=== PATIENT | male | born 1990 | race Caucasian/White ===

== ENCOUNTER 2024-12-29 06:42 | Observation (INO) ==
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
[2024-12-29 07:36] LABS: HCT - HEMATOCRIT 45.4 % (42.0-52.0); HGB - HEMOGLOBIN 15.5 g/dL (14.0-18.0); MEAN PLATELET VOLUME 8.9 fL (7.4-11.4); NRBC ABSOLUTE COUNT (AUTO) 0.00 x10^3/uL; NUCLEATED RED BLOOD CELLS AUTO 0.0 /100WBC; PLT - PLATELET COUNT 209 10^3/uL (130-450); RED CELL DISTRIBUTION WIDTH 12.7 % (12.0-15.0)
[2024-12-29 07:38] LABS: SLIDE REVIEW? Indicated
[2024-12-29 07:51] LABS: ALT ALANINE AMINOTRANSFERASE 25.0 IU/L (10-60); AST ASPARTATE AMINOTRANSFERASE 12.0 IU/L (10-42); BUN - BLOOD UREA NITROGEN 15.0 mg/dL (6-20); CARBON DIOXIDE - CO2 27.0 mmol/L (21-32); CREATININE 1.1 mg/dL (0.6-1.3); GFR - MDRD 76.0 (>89)
[2024-12-29 07:53] LABS: PLATELET ESTIMATE, MANUAL NORMAL (130-450,000) (NORMAL); PLATELET MORPHOLOGY NORMAL APPEARANCE (NORMAL); RBC MORPHOLOGY (MULTIPLE) NORMAL APPEARANCE (NORMAL)
[2024-12-29 07:54] LABS: TROPONIN I HIGH SENSITIVITY 5.3 ng/L (2.3-19.7)
--- NOTE | 2024-12-29 08:00 | XRAY Report ---
PROCEDURE: XR Chest 2V INDICATIONS: persistent rioght sided chest pain, SOB TECHNIQUE: 2 views of the chest were acquired. COMPARISON: None. FINDINGS AND IMPRESSION: Dense consolidation in the right upper lobe, likely pneumonia. No pleural effusions. Surveillance imaging is recommended to ensure resolution. Normal heart size. Unremarkable osseous structures. Reviewed by: Freddy Bucio MD on 12/29/2024 7:57 AM PST Approved by: Freddy Bucio MD on 12/29/2024 7:57 AM PST Station ID: [id number]
[2024-12-29] MEDS: AZITHROMYCIN INJ 500 MG in SODIUM CHLORIDE 0.9% 250 ML IV STA (08:18)
[2024-12-29] MEDS: cefTRIAXone 1 GM VIAL IVP STA (08:23)
--- NOTE | 2024-12-29 08:45 | CT Report ---
PROCEDURE: CT Chest W INDICATIONS: SOB, pain, right sided chest mass? CONTRAST: 100ml omni 300 TECHNIQUE: After the administration of intravenous contrast, a CT scan of the chest was performed. Images were recorded and evaluated at appropriate window settings. Reformats: axial MIP of the chest, coronal and sagittal. For radiation dose reduction, the following was used: automated exposure control, adjustment of mA and/or kV according to patient size. COMPARISON: Same day radiograph FINDINGS: Image quality: Diagnostic Lungs and pleura: Dense masslike consolidation is seen in the right upper lobe. Bibasal atelectasis. No pleural effusions. Mediastinum, heart, and esophagus: Small hiatal hernia. Normal heart size. No enlarged lymph nodes by size criteria. Chest wall and thyroid: Unremarkable Upper abdomen: No significant abnormalities in the upper abdomen. Bones: No aggressive appearing osseous abnormality. IMPRESSION: Dense masslike consolidation in the right upper lobe, favored to be pneumonia. Short interval follow-up imaging is suggested to ensure resolution following adequate treatment trial. This would be suspicious if persistent. Other findings above. Reviewed by: Freddy Bucio MD on 12/29/2024 8:41 AM PST Approved by: Freddy Bucio MD on 12/29/2024 8:41 AM PST Station ID: [id number]
[2024-12-29] MEDS: fentaNYL 100 MCG/2 ML VIAL IVP STA (09:07)
[2024-12-29] MEDS: ONDANSETRON 4 MG/2 ML VIAL IVP STA (09:07)
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
[2024-12-29 09:24] LABS: B. PARAPERTUSSIS- RESP PCR PAN NOT DETECTED; B. PERTUSSIS- RESP PCR PANEL NOT DETECTED; C. PNEUMONIAE- RESP PCR PANEL NOT DETECTED; CORONAVIRUS 229E-RESP PCR NOT DETECTED; CORONAVIRUS HKU1-RESP PCR NOT DETECTED; CORONAVIRUS NL63-RESP PCR NOT DETECTED; CORONAVIRUS OC43-RESP PCR NOT DETECTED; HUMAN METAPNEUMOVIRUS NOT DETECTED; INFLUENZA A- RESP PCR PANEL NOT DETECTED; INFLUENZA B - RESP PCR PANEL NOT DETECTED; M. PNEUMONIAE- RESP PCR PANEL NOT DETECTED; PARAINFLUENZA VIRUS 1 NOT DETECTED; PARAINFLUENZA VIRUS 2 NOT DETECTED; PARAINFLUENZA VIRUS 4 NOT DETECTED; RHINOVIRUS/ENTEROVIRUS NOT DETECTED; RSV- RESP PCR PANEL NOT DETECTED; SARS-CoV-2 -RESP PCR PANEL NOT DETECTED
[2024-12-29] MEDS ORDERED: SODIUM CHLORIDE FLUSH 0.9% 10 ML SYRINGE IVP PRN (10:00)
[2024-12-29] MEDS ORDERED: ONDANSETRON ODT 4 MG TABLET TL PRN (10:00)
[2024-12-29] MEDS: VANCOMYCIN INJ 2 GM in SODIUM CHLORIDE 0.9% 500 ML IV ONE (10:36)
[2024-12-29] MEDS: ONDANSETRON 4 MG/2 ML VIAL IVP PRN (10:47)
[2024-12-29] MEDS: oxyCODONE 5 MG TABLET PO PRN ×2 (10:47→15:43)
[2024-12-29] MEDS: cefTRIAXone 1 GM in SODIUM CHLORIDE 0.9% MINIBAG 100 ML IV STA (11:01)
[2024-12-29] MEDS: ACETAMINOPHEN 500 MG TABLET PO SCH ×2 (11:07→23:49)
[2024-12-29] MEDS: HEPARIN 5,000 UNIT/ML VIAL SUBQ SCH (11:12)
[2024-12-29] MEDS: cefTRIAXone 2 GM in SODIUM CHLORIDE 0.9% MINIBAG 100 ML IV SCH (12:43)
--- NOTE | 2024-12-29 13:38 | PHARMACY PROGRESS NOTE ---
Vancomycin Therapy Monitoring Patient Information Vancomycin Pt Height (inches): 70 Vancomycin Patient Weight (kg): 89 Vanco Rx Serum Creatinine (mg/dL): 1.1 Vancomycin Therapy BUN (mg/dL): 15 Vancomycin Therapy Calculated Creatinine Cl (ml/min): 117 Concurrent Antibiotics: [id number] Vancomycin Therapy Goals Treatment Indication: CAP Vancomycin Target Range: Vancomycin AUC Target Range 400-600 mcg*h/ml Assessment of Current Therapy Vancomycin Loading Dose (GM, if applicable): 2G Current Vancomycin Maintenance Regimen (if applicable): 1G Q8H Vancomycin Current Regimen: Subtherapeutic Levels Estimated Cmax (Peak, mcg/ml): 26.2 Estimated Cmin (Trough, mcg/ml): 12.9 Estimated AUC (mcg*hr/ml): 544 Plan: Pharmacy recommendation: Continue current regimen Vancomycin Level Recommendation: Level not necessary at this time Areas for additonal monitoring Areas for additional monitoring: Therapy de-escalation based on culture results
[2024-12-29] MEDS: ESCITALOPRAM 10 MG TABLET PO SCH (15:31)
[2024-12-29] MEDS: SODIUM CHLORIDE FLUSH 0.9% 10 ML SYRINGE IVP SCH (15:44)
[2024-12-29] MEDS: VANCOMYCIN INJ 1 GM in SODIUM CHLORIDE 0.9% 250 ML IV SCH (19:21)
[2024-12-30] MEDS ORDERED: LEVALBUTEROL 1.25 MG/3 ML NEB INH PRN (00:53)
--- NOTE | 2024-12-30 01:06 | PROVIDER PROGRESS NOTE ---
Supermarket Manager Note Supermarket Manager Note Supermarket Manager Note: per nurse: dx: community acquired pneumonia cough is very painful, audible congestion in upper lobes. hemoptysis, pink tinged. does not have any breathing treatments ordered. HR is 112. does not have PRN for tachycardia at this time. will recheck VS shortly, however want to be prepared in case it elevates. temp 37.5 WBC 30 FYI request PRN for tachycardia request PRN breathing treatments thank you! chart reviewed. Patiet normally take propranolol at home. However will hold until chest xray completed, if shows pulmonary edema will give lasix. xopenex ordered. incentive spirometry encouraged.
--- NOTE | 2024-12-30 02:01 | XRAY Report ---
PROCEDURE: XR Chest 1V INDICATIONS: worsening shortness of breath TECHNIQUE: One view of the chest was acquired. COMPARISON: 12/29/2024 FINDINGS: Surgical changes and devices: None. Lungs and pleura: Persistent dense, masslike consolidation in the right upper lobe which is again favored to represent pneumonia. It appears more pronounced and more dense. No pneumothorax. Subtle opacities of the bilateral costophrenic angles may represent tiny pleural effusions. No new consolidation.. Mediastinum: Mediastinal contours appear normal. Heart size is normal. Bones and chest wall: No suspicious bony lesions. Overlying soft tissues appear unremarkable. IMPRESSION: Redemonstration of dense, masslike consolidation in the right upper lobe which appears slightly more dense/pronounced on today's exam. This is again favored to represent pneumonia. Recommend short interval follow-up imaging 4-6 weeks after adequate treatment trial to document resolution of findings. Again, this finding would be suspicious if persistent at that time. Reviewed by: Anup Fall MD on 12/30/2024 1:57 AM PST Approved by: Anup Fall MD on 12/30/2024 1:57 AM PST Station ID: [id number]
[2024-12-30] MEDS ORDERED: cefTRIAXone 2 GM in SODIUM CHLORIDE 0.9% MINIBAG 100 ML IV SCH (09:00)
[2024-12-30] MEDS: PROPRANOLOL 10 MG TABLET PO SCH (09:10)
[2024-12-30] MEDS: PANTOPRAZOLE 40 MG TABLET PO SCH (09:10)
[2024-12-30 09:14] LABS: HCT - HEMATOCRIT 38.0 % (42.0-52.0); HGB - HEMOGLOBIN 12.8 g/dL (14.0-18.0); MEAN PLATELET VOLUME 8.7 fL (7.4-11.4); PLT - PLATELET COUNT 179 10^3/uL (130-450); RED CELL DISTRIBUTION WIDTH 13.1 % (12.0-15.0)
[2024-12-30 09:15] LABS: ABNORMAL LYMPHS % (MANUAL) 0 %; BASOPHILS # (MANUAL) 0.0 10^3/uL (0-0.1); EOSINOPHILS # (MANUAL) 0.0 10^3/uL (0-0.7)
[2024-12-30 09:31] LABS: BAND NEUTROPHILS % (MANUAL) 13 %; LYMPHOCYTES # (MANUAL) 2.7 10^3/uL (1.5-3.5); LYMPHOCYTES % (MANUAL) 10 %; MONOCYTES # (MANUAL) 0.5 10^3/uL (0.0-1.0); MYELOCYTES % (MANUAL) 1 %; NEUTROPHILS # (MANUAL) 23.1 10^3/uL (1.5-6.6); PLATELET ESTIMATE, MANUAL NORMAL (130-450,000) (NORMAL); PLATELET MORPHOLOGY NORMAL APPEARANCE (NORMAL); RBC MORPHOLOGY (MULTIPLE) NORMAL APPEARANCE (NORMAL); WBC MORPHOLOGY (MULTIPLE) NORMAL APPEARANCE (NORMAL)
[2024-12-30 09:46] LABS: ALT ALANINE AMINOTRANSFERASE 18.0 IU/L (10-60); AST ASPARTATE AMINOTRANSFERASE 11.0 IU/L (10-42); BUN - BLOOD UREA NITROGEN 20.0 mg/dL (6-20); CARBON DIOXIDE - CO2 24.0 mmol/L (21-32); CREATININE 1.2 mg/dL (0.6-1.3); GFR - MDRD 69.0 (>89)
--- NOTE | 2024-12-30 09:48 | PROVIDER PROGRESS NOTE ---
Subjective Prog Note Date Prog Note Date: 12/30/24 Prog Note Time: 09:46 Subjective Subjective: Cough worsened overnight. 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 He has not received any breathing treatments yet. New chest x-ray shows increased density of his consolidation, but no other lesions. Blood cultures with no growth today. His sputum cultures are growing GPC's. His MRSA nares is negative. Vancomycin was discontinued today. His white blood cell count is only minimally decreased today. Down from 38 to 26. Neutrophils from 27 to 23. He is feeling a little bit better. His pain with coughing has gone from a 10 to an 8. He is still very dyspneic. Taking shallow breaths. Frequent coughs. Continue pulmonary toileting, starting on DuoNebs, starting on guaifenesin to help for sputum mobilization In the afternoon called back to bedside. In pain crisis, anxious, complaining of intractable pain still in his right shoulder. Current Medications Current Medications Current Medications: Current Medications Generic Name Dose Route Start Last Admin Trade Name Freq PRN Reason Stop Dose Admin Acetaminophen 1,000 mg 12/30/24 00:00 12/30/24 08:25 Acetaminophen 500 Mg Tablet PO 1,000 mg Q8H NATALIIA Administration Albuterol/Ipratropium 3 ml 12/30/24 09:38 Ipratropium/Albuterol 3 Ml Neb INH Q4HR PRN Dyspnea, Wheezing Escitalopram Oxalate 5 mg 12/29/24 14:00 12/30/24 08:25 Escitalopram 10 Mg Tablet PO 5 mg DAILY NATALIIA Administration Guaifenesin 600 mg 12/30/24 10:00 Guaifenesin 600 Mg Tablet PO BID NATALIIA Heparin Sodium (Porcine) 5,000 unit 12/29/24 10:00 12/30/24 07:33 Heparin 5,000 Unit/Ml Vial SUBQ Not Given TID NATALIIA Hydroxyzine Pamoate 100 mg 12/29/24 13:14 12/30/24 01:03 Hydroxyzine Pamoate 25 Mg Capsule PO 100 mg TID PRN Administration Anxiety Ceftriaxone Sodium 2 gm/ 100 mls @ 200 mls/hr 12/29/24 12:00 12/30/24 09:08 Sodium Chloride IV 200 mls/hr DAILY NATALIIA Administration Lidocaine 1 patch 12/29/24 10:00 12/30/24 08:27 Lidocaine Patch 4% TOP 1 patch DAILY NATALIIA Administration Ondansetron HCl 4 mg 12/29/24 10:00 Ondansetron Odt 4 Mg Tablet TL Q6HR PRN Nausea / Vomiting Ondansetron HCl 4 mg 12/29/24 10:00 12/29/24 10:47 Ondansetron 4 Mg/2 Ml Vial IVP 4 mg Q6HR PRN Administration Nausea / Vomiting Oxycodone HCl 5 mg 12/29/24 10:00 12/29/24 10:47 Oxycodone 5 Mg Tablet PO 5 mg Q4HR PRN Administration Pain 5 to 7 Oxycodone HCl 10 mg 12/29/24 10:00 12/30/24 01:03 Oxycodone 5 Mg Tablet PO 10 mg Q4HR PRN Administration Pain 8 to 10 Pantoprazole Sodium 40 mg 12/30/24 09:00 12/30/24 09:10 Pantoprazole 40 Mg Tablet PO 40 mg QDAC NATALIIA Administration Propranolol HCl 10 mg 12/30/24 09:00 12/30/24 09:10 Propranolol 10 Mg Tablet PO 10 mg TID NATALIIA Administration Sodium Chloride 10 ml 12/29/24 10:00 Sodium Chloride Flush 0.9% 10 Ml Syringe IVP PRN PRN NEEDED PER PROVIDER ORDERS Sodium Chloride 10 ml 12/29/24 17:00 12/30/24 09:08 Sodium Chloride Flush 0.9% 10 Ml Syringe IVP 10 ml 0100,0900,1700 NATALIIA Administration Objective Vital Signs/Intake & Output Reviewed Vital Signs: Yes Vital Signs: Vital Signs x48h Temp Pulse Resp BP Pulse Ox O2 Flow Rate 12/30/24 09:00 36.6 C 69 22 100/64 96 12/30/24 02:28 36.3 C L 65 16 97 2.5 Intake & Output: Intake & Output 12/27/24 12/28/24 12/29/24 12/30/24 23:59 23:59 23:59 23:59 Intake Total 2500 / 2500 550 / 550 Balance 2500 / 2500 550 / 550 Weight (kg) 89 kg Objective Comments/Other: GEN: This morning walking around, anxious. This afternoon sitting in chair, muscles tensing. In extremis. HEENT: NC/AT, normal appearance of external ears and nose. Hearing baseline. Cardiac: Regular rate and rhythm, no murmurs. Pulm: Right sided ronchi, taking shallow breaths. Loud mucinous productive cough, non bloody. Abdomen: Soft, nontender, nondistended. No rebound or guarding Extremities: Moves all 4 extremities equally. Normal tone. Neuro: Face symmetric, CN II through XII intact grossly. Psych: Mood anxious. Ruminative Lab Results 12/30/24 09:09 12/30/24 09:09 Other Labs: Lab Results x24hrs 12/30/24 12/29/24 Range/Units 09:09 14:18 WBC 26.5 H (4.8-10.8) x10^3/uL RBC 4.05 L (4.70-6.10) 10^6/uL Hgb 12.8 L (14.0-18.0) g/dL Hct 38.0 L (42.0-52.0) % MCV 93.8 (80.0-94.0) fL MCH 31.6 H (27.0-31.0) pg MCHC 33.7 (32.0-36.0) g/dL RDW 13.1 (12.0-15.0) % Plt Count 179 (130-450) 10^3/uL MPV 8.7 (7.4-11.4) fL Neut # (Auto) Not Reportable Lymph # (Auto) Not Reportable [place] # (Auto) Not Reportable Eos # (Auto) Not Reportable Baso # (Auto) Not Reportable Absolute Nucleated RBC Not Reportable Total Counted 100 Band Neuts % (Manual) 13 H (0 - 10) % Abnorm Lymph % (Manual) 0 % Myelocytes % 1 H ( - 0) % Nucleated RBC % Not Reportable Neutrophils # (Manual) 23.1 H (1.5-6.6) 10^3/uL Lymphocytes # (Manual) 2.7 (1.5-3.5) 10^3/uL Monocytes # (Manual) 0.5 (0.0-1.0) 10^3/uL Eosinophils # (Manual) 0.0 (0-0.7) 10^3/uL Basophils # (Manual) 0.0 (0-0.1) 10^3/uL Differential Comment MANUAL DIFFERENTIAL WBC Morphology NORMAL APPEARANCE (NORMAL) Platelet Estimate NORMAL (130-450,000) (NORMAL) Platelet Morphology NORMAL APPEARANCE (NORMAL) RBC Morph Micro Appear NORMAL APPEARANCE (NORMAL) Sodium 130 L (135-145) mmol/L Potassium 3.9 (3.5-4.5) mmol/L Chloride 97 L (101-111) mmol/L Carbon Dioxide 24 (21-32) mmol/L Anion Gap 9.0 (6-13) BUN 20 (6-20) mg/dL Creatinine 1.2 (0.6-1.3) mg/dL Estimated GFR (MDRD) 69 L (>89) Glucose 114 H (74-104) mg/dL Calcium 8.8 (8.5-10.3) mg/dL Total Bilirubin 0.6 (0.2-1.0) mg/dL AST 11 (10-42) IU/L ALT 18 (10-60) IU/L Alkaline Phosphatase 56 (42-121) IU/L Total Protein 6.6 (6.4-8.9) g/dL Albumin 3.5 (3.2-5.5) g/dL Globulin 3.1 (2.1-4.2) g/dL Albumin/Globulin Ratio 1.1 (1.0-2.2) Nasal Screen MRSA (PCR) NEGATIVE (NEGATIVE) Assessment/Plan Problem List (1) Pain crisis: Impression: Patient with pain crisis, coughing up lots of mucinous sputum. Pain localized in R shoulder. No chest tightness. Tachycardic. Sats normal. - Giving 1 time toradol - Giving 1 time IV ativan - RT at bedside, PRN nebs - Pneumonia as below - Check labs to rule out PE. DD was normal yesterday. (2) Pneumonia: Impression: Patient was doing better this morning. Leukocytosis only mildly down trended. His pain is increased in this afternoon. Pain crisis as above. On admission, elevated leukocytosis at 30,000. He has a consolidation on his chest x-ray in the right upper lobe. Procalcitonin elevated at 14. No witnessed fevers here. Vital signs otherwise stable. His PSI score is 36 with points only for age. Risk class I. Outpatient treatment would be reasonable, but his pain is likely going to limit his ability to care for himself. - Repeat chest x-ray this afternoon with his pain crisis, pending formal read, I personally reviewed, there is some feathering out of the density with some interstitial prominence. - Pain control with scheduled Tylenol, lidocaine patch, as needed narcotics available preference oral - Continue IV Rocephin 2 mg daily - MRSA nares is negative, DC vancomycin. - Blood cultures NGTD - Sputum cultures with GPC's, pending speciation. - Pulmonary toileting, likely difficult with his pain if not controlled - Chest physiotherapy - O2 as needed, goal sat > 92% - Will need surveillance CT within 3 months once symptoms resolve - Prior to note being signed, his D-dimer did return back elevated to 400, in combination with his tachycardia, chest pain, will send for CTA. - If not improving may need to transfer for bronch Qualifiers: Laterality: right Lung location: upper lobe of lung Pneumonia type: d ue to unspecified organism Qualified Code(s): J18.9 - Pneumonia, unspecified organism (3) Mood disorder: (4) Panic disorder: Impression: Anxious in the setting of his pain crisis. Treating for anxiety as above. Otherwise mood is pretty good this morning. He is requesting his home propranolol. Patient with significant history of mood disorder including anxiety and bipolar 2. He is on atypical medication regimen. Has been on BuSpar in the past. Recently started on Lexapro in the last few months. Dose was escalated within the last couple of weeks. He he had a questionable serotonin syndrome response to the dose increase on Lexapro. Specifically had a fever to 103 with rigors. This was 2 days prior to his admission. Concerned this may have been more related to systemic infection. Patient has chronic history of passive suicidal ideation. Continues to not endorse active SI. Not making a plan. - Monitor clinically but not needing safety plan at this time - Continue his lower dose of Lexapro 5 mg daily - Vistaril 100 mg 3 times daily as needed - Propranolol 10 mg 3 times daily - IV Ativan for breakthrough anxiety, Limited course (5) HTN (hypertension): Impression: Blood pressure has been normotensive to slightly hypertensive. Not resuming his home antihypertensives at this time. History of hypertension. He has remained normotensive here. He did not take his lisinopril 10 mg prior to arrival. - Hold lisinopril. Can resume lisinopril 10 mg if he is persistently hypertensive - Otherwise avoiding treating asymptomatic hypertension in the hospitalized patient Qualifiers: Hypertension type: unspecified Qualified Code(s): I10 - Essential (primary) hypertension
--- NOTE | 2024-12-30 12:07 | PHARMACY PROGRESS NOTE ---
Best Possible Medication History Admit Date and Time: 12/29/24 0855 Home Medications Medication Instructions Recorded Confirmed Type hydroxyzine HCl 50 mg tablet 50 - 100 mg PO TID PRN an xiety 12/16/24 12/29/24 History Held on 12/16/24. Instructions: Per Provider propranolol 10 mg tablet 10 mg PO Q6H #90 tabs 12/29/24 Rx buspirone 7.5 mg tablet 7.5 mg PO DAILY 12/29/24 History escitalopram oxalate 10 mg tablet 10 mg PO DAILY 12/3012/30/24 History (Lexapro) lisinopril 10 mg tablet 10 mg PO DAILY 12/30/2412/17 History Processed by: Pharmacy Medications reviewed in ED?: Yes Medication History completed: Yes Patient Interview: Completed Secondary Source(s): Insurance records [facility] Statement: As the person ultimately responsible for medication therapy, providers are able to order a medication from an existing home medication list in [facility] via the "Reconcile Routine" prior to Confirmation of that medication by applications support lead. Such practice is discouraged except when the physician, in their clinical judgment, deems that a medical need exists for a medication without regard to previous use.
[2024-12-30] MEDS ORDERED: LORazepam 2 MG/ML VIAL IVP PRN (12:36)
[2024-12-30] MEDS: IPRATROPIUM/ALBUTEROL 3 ML NEB INH PRN (12:38)
[2024-12-30] MEDS: LORazepam 2 MG/ML VIAL IVP ONE (12:38)
[2024-12-30] MEDS: KETOROLAC 30 MG/ML VIAL IVP STA (12:50)
[2024-12-30] MEDS: AZITHROMYCIN 250 MG TABLET PO SCH (13:05)
[2024-12-30] MEDS: iohexoL-300 150 ML BOTTLE IVP ONE (15:30)
[2024-12-30] MEDS ORDERED: HYDROmorphone 0.5 MG/0.5 ML SYRINGE IVP PRN (17:02)
[2024-12-30] MEDS ORDERED: oxyCODONE 5 MG TABLET PO PRN (17:04)
[2024-12-30] MEDS: oxyCODONE 5 MG TABLET PO SCH (18:05)
--- NOTE | 2024-12-30 20:45 | CT Report ---
PROCEDURE: CT Angio Chest INDICATIONS: Elevated DD, Chest pain, dyspnea, tachy CONTRAST: OMNI 300 80 ML TECHNIQUE: After the administration of intravenous contrast images of the chest were acquired. 3-dimensional coronal oblique maximum intensity projection (MIP) reformats, axial MIP, and coronal and sagittal MPR reformats were then performed through the chest. For radiation dose reduction, the following was used: automated exposure control, adjustment of mA and/or kV according to patient size. COMPARISON: Chest radiograph 12/30/2024 FINDINGS: Image quality: Excellent. Large vessels: No filling defects within the opacified pulmonary arteries, accounting for motion and contrast timing. No evidence of acute aortic syndrome or aortic aneurysm. Lungs and pleura: Large right upper lobe consolidation involving the majority of the lobe. No pleural effusions. No pneumothorax. No suspicious pulmonary nodules which require follow up. Mediastinum: Heart size is normal. No pericardial effusion. No large vessel abnormality. No mediastinal adenopathy by size criteria. Chest wall and lower neck: Thyroid is unremarkable. No axillary or supraclavicular adenopathy by size. Bones: No aggressive osseous abnormality. Upper Abdomen: Unremarkable. IMPRESSION: No pulmonary embolus. Right upper lobe lobar pneumonia. Reviewed by: Shani Rosen MD on 12/30/2024 8:42 PM PST Approved by: Shani Rosen MD on 12/30/2024 8:42 PM PST Station ID: [id number]
[2024-12-31 06:15] LABS: HCT - HEMATOCRIT 38.9 % (42.0-52.0); HGB - HEMOGLOBIN 13.0 g/dL (14.0-18.0); MEAN PLATELET VOLUME 9.1 fL (7.4-11.4); NRBC ABSOLUTE COUNT (AUTO) 0.00 x10^3/uL; NUCLEATED RED BLOOD CELLS AUTO 0.0 /100WBC; PLT - PLATELET COUNT 221 10^3/uL (130-450); RED CELL DISTRIBUTION WIDTH 12.8 % (12.0-15.0)
[2024-12-31 06:36] LABS: ALT ALANINE AMINOTRANSFERASE 37.0 IU/L (10-60); AST ASPARTATE AMINOTRANSFERASE 41.0 IU/L (10-42); BUN - BLOOD UREA NITROGEN 18.0 mg/dL (6-20); CARBON DIOXIDE - CO2 29.0 mmol/L (21-32); CREATININE 1.2 mg/dL (0.6-1.3); GFR - MDRD 69.0 (>89)
--- NOTE | 2024-12-31 09:43 | Discharge Summary ---
Discharge Summary Admit Date: 12/29/24 Discharge Date: 12/31/24 Discharging Provider: Darrell Vizcaino Primary Care Provider: Juan Francisco Nixon Code Status: Attempt Resuscitation Discharge Facility Name: Home DIAGNOSES Discharge Diagnoses with Status of Each Condition: ## Pneumonia, improved Patient initially presented with elevated leukocytosis at 30,000. He had a procalcitonin of 14. There was attendant right pleuritic chest pain as below. His PSI score was only 36, risk class I, however with this acute pain and distress, he was admitted to observation for further management. He remained on room air for the most part. On hospital day 2 required breathing treatments and supplemental oxygen mostly limited by splinting and shallow breathing. His leukocytosis improved from 30,000-15,000. He has remained on room air. His pain is much improved on day of discharge. He received 3 days of IV ceftriaxone here and 2 days of azithromycin. MRSA nares was negative. Sputum culture showed few GPC's but ultimately cultured with normal oral yasmin. Blood cultures no growth after 2 days - Will complete 7-day total course of antibiotics - Discharged with cefpodoxime 200 mg twice daily and Z-Luis - Blood cultures NGTD, we continue to monitor - Continue incentive spirometer and Aerobika - Continue guaifenesin scheduled while on antibiotics - Needs surveillance imaging in 2 to 3 months given density and size of consolidation, CXR vs CT, would favor CT ## Right pleuritic chest pain, Improved Patient was predominantly admitted because his pain was intolerable in the ED. His first day in the hospital was poor. This eventually culminated in a pain crisis on hospital day 1. He received a shot of IV Toradol and narcotics which eventually got him out of pain crisis and panic attack. His pain was progressive to the point where we got a D-dimer which prompted CTA. Ultimately negative for PE. He was scheduled on oxycodone 5 mg every 6 hours which allowed him to stay ahead of his pain. Continued on scheduled Tylenol. Pain much better managed by day of discharge. - Continue scheduled Tylenol 3 times daily - Continue narcotics for the next few days, wean as tolerated - Continue pulmonary toileting as above - Surveillance imaging as above ## Mood disorder ## Panic disorder Patient with significant history of mood disorder including anxiety and bipolar 2. He is on atypical medication regimen. Has been on BuSpar in the past. Recently started on Lexapro in the last few months. Dose was escalated within the last couple of weeks. He he had a questionable serotonin syndrome response to the dose increase on Lexapro. Specifically had a fever to 103 with rigors. This was 2 days prior to his admission. Concerned this may have been more related to systemic infection. Patient has chronic history of passive suicidal ideation. Continues to not endorse active SI. Not making a plan. Patient was continued on his Lexapro, propranolol during this hospitalization. He required IV Ativan once for his panic attack. ## HTN (hypertension) Remained mostly normotensive during this hospitalization. His blood pressure medications were held initially given the severity of his infection and concern for systemic infection. He continues to be normotensive at discharge, 113/74. Prior to this admission, on lisinopril 10 mg. - Instructed patient to continue holding lisinopril - Patient will keep a log of his blood pressures and bring to his next PCP appointment HPI History of Present Illness: This is a 34-year-old male with a history of panic disorder, bipolar 2, hypertension who presents for episode of hemoptysis in the community. Suspicious for community-acquired pneumonia on initial imaging. He has been having a cough for the last several days. He fevered on 12/27 as below. He is no other significant fevers or systemic symptoms at home otherwise. He started having umesh mopped assist, a "teaspoon" within the night prior to admission that prompted him to seek care. He was found in the ED to have a fairly significant right upper lung field consolidation. His white count is 30,000. Procalcitonin is elevated. Remarkably his BUN is normal. His creatinine is normal. His vital signs are stable. He technically meets septic criteria with a heart rate of 99, but has remained afebrile, normotensive, with saturations in the mid 90s on room air. Patient's history is notable for relatively severe anxiety disorder with a diagnosis of bipolar 2. He is currently on a 12-week leave of absence from work due to this. He was seen by behavioral health yesterday. He has been weaning off of Lexapro, he had a possible serotonin syndrome reaction to it including fever and muscle tension. He has been having increasing panic attacks at work. Most significant of which started in June of this year. On 12/27, he was lying in bed after taking his evening medications. He had episodes of rigors and fever up to 103. He was advised by the nurse line that this was likely serotonin syndrome. As such he has had a reduction in his Lexapro. He was having questionable mood benefit on Lexapro due to improvement in his mood but also significant lifestyle change. He has been in therapy as well. Regarding his lung function, his says he is fairly "phlegmy" prior to this episode, but no history of frequent pneumonias. He is never been hospitalized with pneumonia before. He smokes an occasional cigar, but is not a cigarette smoker or regular cannabis user. He does drink 1-3 drinks daily. He is a college graduate. He has never been incarcerated. He has never served time in the . No time in a communal setting that he is aware of. His medications include Lexapro 5 mg, propranolol 10 mg (just recently started 12/28), lisinopril 10 mg daily. Vistaril has been used in the past but apparently not currently. He has had a prior appendectomy. No other large surgeries. CONSULTS | PROCEDURES Consultations: None Procedures: CXR 12/19, 12/30 CT Chest 12/29 CTA chest 12/30 HOSPITAL COURSE Hospital Course: Mr. Bond is a 34-year-old male with past medical history of hypertension, bipolar disorder, anxiety disorder with panic attack. He presented with community-acquired pneumonia with a dense focal consolidation in his right upper lobe. No known sick contacts. He was started on IV ceftriaxone and azithromycin. Initially also started on vancomycin. His sputum cultures were positive for gram-positive cocci, not yet speciated. He had a coarse productive cough which caused significant pleurisy. He was having ongoing pleuritic chest pain that precipitated a panic attack on hospital day 1. Labs were ordered, and he had an elevated D-dimer. This prompted a CTA of his chest which did not reveal any pulmonary embolus. Suspect his dimer was elevated in the setting of his acute infection. His white count did not initially improved. He was having trouble mobilizing secretions given his pain. He was started on guaifenesin, consideration for chest physiotherapy, but he was thought to likely not tolerate. He was able to use an Acapella and cleared secretions that way. Started him on scheduled pain medications which have helped him effectively clear his secretions better. By hospital day 2 and day of discharge, he has been much more comfortable. He was able to sleep through the night. His white count improved from 30,000 on admission down to 15,000. His vital signs have stabilized. He is discharged in stable condition. Being prescribed cefpodoxime 200 mg twice daily as well as Z-Luis to complete. Will treat for prolonged course given his slow recovery here. He should have interval imaging of his chest within the next 2 to 3 months. I would preference a CT, but chest x-ray would be appropriate given his young age, low risk factors, and to avoid significantly more radiation exposure. He is still needing some narcotics for management of his pleuritic chest pain. He will wean off of these over the coming days. ALLERGIES Allergies Allergy/AdvReac Type Severity Reaction Status Date / Time No Known Drug Allergies Allergy Verified 12/29/24 06:55 MEDICATIONS Ambulatory Orders Medication Instructions Recorded Confirmed propranolol 10 mg tablet 10 mg PO Q6H #90 tabs 12/29/24 lisinopril 10 mg tablet 10 mg PO DAILY 12/30/2412/17 Held on 12/31/24. Instructions: Resume on 01/13/25. Hold until f/u with your PCP, keep home blood pressure logs acetaminophen 500 mg tablet 1,000 mg (2 x 500 mg) PO Q 8H #0 12/31/24 (Tylenol Extra Strength) tabs azithromycin 250 mg tablet See Rx Instructions PO .COM PLEX #6 12/31/24 (Zithromax Z-Luis) tabs cefpodoxime 200 mg tablet 200 mg PO BID 4 days #8 tabs 12/31/24 escitalopram oxalate 10 mg tablet 5 mg (1/2 x 10 mg) P O DAILY #0 tabs 12/31/24 guaifenesin 600 mg tablet, 600 mg PO BID 5 days #0 tab s 12/31/24 extended release 12 hr (Mucinex) oxycodone 5 mg tablet 5 mg PO Q6H PRN pain #20 tab s 12/31/24 PHYSICAL EXAM AT DISCHARGE Vital Signs: Vital Signs x48h Temp Pulse Resp BP Pulse Ox 12/31/24 10:44 36.7 C 64 20 113/74 96 12/31/24 08:19 36.8 C 70 20 105/69 95 Physical Exam Other/Comments: GEN: No acute distress, appears comfortable, reading HEENT: NC/AT, normal appearance of external ears and nose. Hearing baseline. Cardiac: Regular rate and rhythm, no murmurs. Euvolemic on exam. Palpable peripheral pulses. Pulm: More evident rhonchi in the right upper lung field. Good air movement. Continues to have intermittent cough, more productive. No wheezes. Normal effort on room air. Abdomen: Soft, nontender, nondistended. No rebound or guarding Extremities: Moves all 4 extremities equally. Normal tone. Neuro: Face symmetric, CN II through XII intact grossly. No focal neurologic deficits. Normal gait Psych: Mood euthymic with congruent affect. LABS 12/31/24 05:43 12/31/24 05:43 FOLLOW UP Follow Up: Follow-up with PCP in 1 to 2 weeks Needs interval lung imaging in next 2 to 3 months TIME SPENT Time Spent in Discharge (Minutes): 38 Discharge Plan Discharge Patient Disposition: Home, Self Care Condition: Stable Medically Cleared Date:: 12/31/24 Prescriptions: New acetaminophen [Tylenol Extra Strength] 500 mg Tablet 1,000 mg PO Q8H Qty: 0 0RF escitalopram oxalate 10 mg Tablet 5 mg PO DAILY Qty: 0 0RF guaifenesin [Mucinex] 600 mg Tablet Extended Release 12hr 600 mg PO BID 5 Days Qty: 0 0RF oxycodone 5 mg Tablet 5 mg PO Q6H PRN (Reason: pain) Qty: 20 0RF Rx Instructions: Use as little as needed to control pleuritic chest pain cefpodoxime 200 mg tablet 200 mg PO BID 4 Days Qty: 8 0RF Rx Instructions: Start on 01/01. Must administer with a meal/food azithromycin [Zithromax Z-Luis] 250 mg tablet See Rx Instructions .ROUTE .COMPLEX Qty: 6 0RF Rx Instructions: Start 12/31, For 250 mg dose pack: take 500 mg today (day 1), then 250 mg for 4 days (days 2-5) Continued propranolol 10 mg tablet 10 mg PO Q6H Qty: 90 2RF Held lisinopril 10 mg tablet 10 mg PO DAILY Hold Instructions: Resume on 01/13/25. Hold until f/u with your PCP, keep home blood pressure logs Discontinued buspirone 7.5 mg tablet 7.5 mg PO DAILY Patient Comments: TAKE 1 TABLET (7.5 MG) BY MOUTH TWICE DAILY FOR 30 DAYS escitalopram oxalate [Lexapro] 10 mg tablet 10 mg PO DAILY hydroxyzine HCl 50 mg tablet 50 - 100 mg PO TID PRN (Reason: anxiety) Diet: Regular Interventions: Discharge Last Done: 12/31/24 11:09 Discharge Checklist - Nursing Last Done: 12/31/24 11:10 Health Concerns: You are being discharged with treatment for Pneumonia which is infection of the lung. He had a large consolidated area of pneumonia in your right upper lung. This was treated with antibiotics. You received 3 days of IV antibiotics. Given the severity of your infection, I am treating you for 7 days total of antibiotics. Given the unusual nature and location of your pneumonia, I would encourage you to have follow-up imaging with your primary care doctor in the next 2 to 3 months after you have completed treatment and feel better. Earlier imaging is usually not indicated as the natural course of lung healing following pneumonia is poorly described. You doctor can decide whether a chest x-ray or chest CT is more appropriate at that time. In addition, given your persistent cough and increased secretions, I would recommend that you continue on guaifenesin (Robitussin) while you are on antibiotics. This will help to thin your secretions and allow you to cough them up. Drink plenty of fluids while you are on this medicine. Please follow these instructions carefully to help you recover safely: Prescription medications: * Cefpodoxime: Take 200 mg by mouth every 12 hours with food, as prescribed. Finish the entire course, even if you start feeling better. Stopping early can lead to treatment failure or antibiotic resistance. * Azithromycin: Take 500 mg by mouth on the first day, then 250 mg daily for the remaining days, as directed. Complete the full course. * Oxycodone: Take only as prescribed for chest pain due to pleurisy. Use the lowest effective dose for the shortest time needed. Do not drive or operate machinery while taking oxycodone. Duration of Antibiotics: Most patients need at least 5 days of antibiotics. Therapy may be extended if you have ongoing fever, trouble eating, or confusion. Do not stop antibiotics unless instructed by your healthcare provider. Side Effects and When to Call: * Antibiotics: Diarrhea is common. If you develop severe, watery, or bloody stools, or abdominal pain and fever, contact your provider immediately. * Oxycodone: Watch for constipation, drowsiness, or confusion. If you have trouble breathing, severe allergic reaction, or overdose symptoms, seek emergency care. General Care: * Rest and drink plenty of fluids. * Use cough and deep breathing exercises to help clear your lungs. * Avoid smoking and exposure to secondhand smoke. Follow-Up: Schedule a follow-up visit with your primary care provider within 1-2 weeks. Please hold off on taking your lisnopril (blood pressure medication) until you see your doctor. Bring a log of your blood pressures which will help them determine if they need to restart your blood pressure medicine. Call your provider or go to the emergency room if you experience: * Worsening shortness of breath * Chest pain not controlled by medication * High fever not improving after 3 days of antibiotics * Confusion or difficulty waking up Take all medications exactly as prescribed and do not skip doses. If you have any questions or concerns, contact your healthcare provider. Print Language: Persian Patient Instructions: Cefpodoxime, Treating Pneumonia Follow-up Care: Juan Francisco Nixon FNP [Primary Care Provider, Family Practice] Vitals documented within 30 minutes of discharge?: Yes
[2024-12-31 10:46] VITALS: BP 113/74; TEMP 98.1; O2SAT 96
--- NOTE | 2025-01-01 00:40 | XRAY Report ---
PROCEDURE: XR Chest 1V INDICATIONS: Pneumonia, chest pain TECHNIQUE: One view of the chest was acquired. COMPARISON: None. FINDINGS: Surgical changes and devices: None. Lungs and pleura: No pleural effusions or pneumothorax. Right upper lobe pneumonia. Mediastinum: Mediastinal contours appear normal. Heart size is normal. Bones and chest wall: No suspicious bony lesions. Overlying soft tissues appear unremarkable. IMPRESSION: Right upper lobe pneumonia. Reviewed by: Shani Rosen MD on 01/01/2025 12:36 AM PST Approved by: Shani Rosen MD on 01/01/2025 12:36 AM PST Station ID: [id number]
== END 2024-12-31 10:55 | disposition home or self-care (01) ==
LOC: ED 06:42 → MS2 06:42
PROVIDERS: ADMIT Student in an Organized Health Care Education/Training Program; ATTEND Student in an Organized Health Care Education/Training Program
DX: Z11.52 Encounter for screening for COVID-19; F17.290 Nicotine dependence, other tobacco product, uncomplicated; J18.9 Pneumonia, unspecified organism; M54.9 Dorsalgia, unspecified; I10 Essential (primary) hypertension; F41.1 Generalized anxiety disorder; Z79.899 Other long term (current) drug therapy; F31.81 Bipolar II disorder; R79.89 Other specified abnormal findings of blood chemistry; F41.0 Panic disorder [episodic paroxysmal anxiety]; R04.2 Hemoptysis; R09.1 Pleurisy